=== PATIENT | male | born 1955 | race Two or more races ===

== ENCOUNTER → 2016-06-21 | Day surgery (SDC) | payer SELFPAY ==
[~2016-06-21] VITALS: Ht 172.7 cm; Wt 90.7 kg
[2016-06-21] VITALS (9 sets, daily range): BP systolic 127–154; BP diastolic 78–91
[~2016-06-21] MED LIST: ACTOS30 MG ORAL; ASPIRIN81 MG ORAL; BENAZEPRIL HCL40 MG ORAL; FISH OIL300 M1 PO; GLIMEPIRIDE4 MG ORAL; Glycopyrrolate 0.2mg/ml 1ml Vial ONE; JANUMET 50-1,01 EACH ORAL; LR 1000ml ONE; Lidocaine 1% MPF 10mg/ml 5ml ONE; PRAVASTATIN SOD20 M1 ORAL; Propofol 10mg/ml 20ml IV ONE; TAMSULOSIN HCL0.4 MG ORAL; VITAMIN D1000 UNI1 ORAL
--- NOTE | 2016-06-21 07:11 | Pre-Procedure Note/Attestation ---
Pre-Procedure Note/Attestation Complete Prior to Procedure Planned Procedure: not applicable Procedure Narrative: esophagogastroduodenoscopy colon Indications for Procedure Pre-Operative Diagnosis: GERD Polyp Attestation I attest that I discussed the nature of the procedure; its benefits; risks and complications; and alternatives (and the risks and benefits of such alternatives ), prior to the procedure, with the patient (or the patient's legal service representative). I attest that, if there was a reasonable possibility of needing a blood transfusion, the patient (or the patient's legal service representative) was given the [facility] standardized written summary, pursuant to the Tony Delevan Blood Safety Act ([place] Health and Safety Code # 1645, as amended). I attest that I re-evaluated the patient just prior to the surgery and that there has been no change in the patient's H&P, except as documented below: CLINT CONROY Jun 21, 2016 07:11
--- NOTE | 2016-06-21 07:11 | Short Stay Surgery H&P ---
History of Present Illness History of Present Illness Chief Complaint see attached H&P HPI Iram Caro is a 61 year old male who was admitted on for Colon Polyps,Gerd Patient History Allergies: Coded Allergies: CODEINE (Verified Allergy, Severe, Rash, 06/20/16) With high doses as per the patient PAST MEDICAL HISTORY: Past Surgeries: Social History: Medication History Scheduled Aspirin* (Aspirin*), 81 MG ORAL DAILY, (Reported) Benazepril Hcl* (Benazepril Hcl*), 40 MG ORAL DAILY, (Reported) Cholecalciferol (Vitamin D3)* (Vitamin D*), 2,000 UNITS ORAL DAILY, (Reported) Glimepiride* (Glimepiride*), 4 MG ORAL BEFORE BREAKFAST, (Reported) [place]-3 Fatty Acids (Fish Oil), 300 MG PO DAILY, (Reported) Pioglitazone Hcl* (Actos*), 30 MG ORAL DAILY, (Reported) Pravastatin Sod* (Pravastatin Sod*), 40 MG ORAL BEDTIME, (Reported) Sitagliptin Phos/Metformin Hcl (Janumet 50-1,000 Mg Tablet), 1 TAB ORAL TWICE A DAY, (Reported) Tamsulosin Hcl (Tamsulosin Hcl*), 0.4 MG ORAL BID, (Reported) Physical Exam Vital Signs Last Vital Signs Date Time Temp Pulse Resp B/P Pulse Ox O2 Delivery O2 Flow Rate FiO2 06/21/16 06:33 97.9 76 18 154/88 96 Room Air Plan Attestation Are the patient's medical conditions optimized for surgery? CLINT CONROY Jun 21, 2016 07:11
--- NOTE | 2016-06-21 07:41 | Anethesia Preoperative Eval ---
Anesthesia Pre-op PMH/ROS General Date of Evaluation: Jun 21, 2016 Time of Evaluation: 07:36 Anesthesiologist: rema ASA Score: ASA 2 Mallampati Score Class I : Soft palate, uvula, fauces, pillars visible Class II: Soft palate, uvula, fauces visible Class III: Soft palate, base of uvula visible Class IV: Only hard plate visible Mallampati Classification: Class II Surgeon: morales Diagnosis: gerd Surgical Procedure: EGD/Colonoscopy Anesthesia History: none Family History: no anesthesia problems Allergies: Coded Allergies: CODEINE (Verified Allergy, Severe, Rash, 06/20/16) With high doses as per the patient Medications: see eMAR Past Medical History Cardiovascular: Reports: HTN Pulmonary: Denies: COPD, JOSE, asthma, other Gastrointestinal/Genitourinary: Reports: GERD Neurologic/Psychiatric: Denies: CVA, TIA, dementia, depression/anxiety, other Endocrine: Reports: hypothyroidism HEENT: Denies: EKWOK (L), EKWOK (R), cataract (L), cataract (R), glaucoma, other Hematology/Immune: Denies: DVT, anemia, bleeding disorder, other Musculoskeletal/Integumentary: Denies: DDD, DJD, OA, RA, edema, other PSxH Narrative: EGD/Colon Anesthesia Pre-op Phys. Exam Physician Exam Last Vital Signs Date Time Temp Pulse Resp B/P Pulse Ox O2 Delivery O2 Flow Rate FiO2 06/21/16 06:33 97.9 76 18 154/88 96 Room Air Constitutional: NAD Neurologic: CN 2-12 intact Cardiovascular: RRR Respiratory: CTA Gastrointestinal: S/NT/ND Airway Exam Mallampati Classification 3 Mallampati Score: Class II MO: full ROM: full Dentures: no lower, no upper Anesthesia Pre-op A/P Risk Assessment & Plan Plan: Mac Status Change Before Surgery: No Pre-Antibiotics Drug: none DEJA ARRINGTON CRNA Jun 21, 2016 07:41
--- NOTE | 2016-06-21 08:06 | Brief Operative Note ---
Immediate Post Operative Note Operative Note Chief Complaint: JIM, Polyp Pre-op Diagnosis: GERD Polyp Procedure: EGD/bx, colon/bx/SN/Inj Post-op Diagnosis: Little, HH, GERD, Inlet, Tics, Sigmoidectomy, polyps Surgeon: rishabh Anesthesiologist: see attached Anesthesia: MAC, moderate sedation Specimen: yes Complications: none Condition: stable Estimated Blood Loss: none Drains: none Implant(s) used?: Yes CLINT CONROY Jun 21, 2016 08:06
--- NOTE | 2016-06-21 08:07 | Brief Operative Note ---
Immediate Post Operative Note Operative Note Chief Complaint: Little, polyp Pre-op Diagnosis: GERD Polyp Procedure: EGD/bx, colon/bx/SN/Inj Post-op Diagnosis: Little, HH, GERD, Inlet, Tics, Sigmoidectomy, polyps Surgeon: rishabh Anesthesiologist: see attached Anesthesia: MAC Specimen: yes Complications: none Condition: stable Estimated Blood Loss: none Drains: none Implant(s) used?: No CLINT CONROY Jun 21, 2016 08:07
--- NOTE | 2016-06-21 08:16 | Immediate Post-Op Evaluation ---
Immediate Post-Op Evalulation Immediate Post-Op Evalulation Procedure: EGD/Colonscopy Date of Evaluation: Jun 21, 2016 Time of Evaluation: 08:15 IV Fluids: 600 Blood Pressure Systolic: 127 Blood Pressure Diastolic: 79 Pulse Rate: 86 Respiratory Rate: 14 Temperature (Fahrenheit): 97.6 Nausea: No Vomiting: No Complications none Patient Status: awake, patent Hydration Status: adequate Drug: none TARRILLIONDEJA CRNA Jun 21, 2016 08:16
--- NOTE | 2016-06-21 08:58 | 48 Hour Post Anesthesia Eval ---
Post Anesthesia Evaluation Procedure: EGD/Colonscopy Date of Evaluation: Jun 21, 2016 Time of Evaluation: 08:57 Blood Pressure Systolic: 150 0: 74 O2 Sat by Pulse Oximetry: 99 Airway: patent Nausea: No Vomiting: No Hydration Status: adequate Mental Status/LOC: patient returned to baseline Post-Anesthesia Complications: none DEJA ARRINGTON CRNA Jun 21, 2016 08:58
--- NOTE | 2016-06-25 08:28 | Operative Note - Dictated ---
DATE OF OPERATION: 06/21/2016 GASTROLOGY PROCEDURE PROCEDURE: Upper gastrointestinal endoscopy with biopsy as well as colonoscopy with biopsy, snare polypectomy and tattoo injection. SURGEON: Ernie Tinajero M.D. ANESTHESIA: Please see the separate anesthesiologist notes for details. PRE-ENDOSCOPIC DIAGNOSES: 1. gastroesophageal reflux. 2. History of colonic polyps. POST-ENDOSCOPIC DIAGNOSES: 1. Antrum gastritis. 2. A 2 to 3 cm hiatal hernia. 3. Gastroesophageal reflux with erosions in the lower esophagus. 4. Esophagitis in the past. 5. Colonic diverticulosis. 6. Status post sigmoid resection anatomy as expected. 7. Transverse colon polyp in the proximal transverse colon, status post biopsy. 8. A flat 6 to 7 cm transverse colon polyp at the distal transverse colon, status post biopsy, snare polypectomy, and with nearby Viviane ink injection. 9. Sigmoid colon polyp, status post hot snare polypectomy. DESCRIPTION OF PROCEDURE: The procedure, its risks, indications, alternatives, and possible complications including, but not limited to, bleeding, infection, perforation, , and anesthesia complications were explained to the patient and informed consent was obtained. The diagnostic upper endoscope was introduced through the oropharynx and advanced to the duodenum. The endoscope was then gradually withdrawn and the mucosa examined carefully. The examination was notable for findings as listed above. Biopsies of the antrum was sent to pathology for review. The endoscope was removed. The rectal exam was done and a colonoscope was introduced through the rectum and advanced to the cecum without difficulty. The colonoscope was then gradually withdrawn and the mucosa examined carefully. Findings are as listed above. The distal transverse colon polyp was removed, Viviane ink was injected through the polyp appeared to be within a difficult to see. The Viviane ink was injected to jessie for future reference. Hot specimens were sent to pathology for review. Retroflex view of the rectum was unremarkable. The colonoscope was removed and the patient was sent to recovery in good condition. COMPLICATIONS: None. RECOMMENDATIONS: 1. Follow up all biopsy and pathology results. 2. Reflux precautions. 3. Discussed long-term reflux management with the patient and followup. 4. Repeat colonoscopy time interval based on pathology findings. Thank you for asking me to participate in the care of this patient. Ernie Tinajero M.D. DR: MARLENE JOB#: [id number] CC: Ernie Tinajero M.D.; Fax#: [phone]
== END | disposition home or self-care (01) ==
LOC: GAS 06:06
DX: Z86.010 Personal history of colon polyps (principal); D12.3 Benign neoplasm of transverse colon; D12.5 Benign neoplasm of sigmoid colon; K57.30 Diverticulosis of large intestine without perforation or abscess without bleeding; K21.9 Gastro-esophageal reflux disease without esophagitis; K29.50 Unspecified chronic gastritis without bleeding; K44.9 Diaphragmatic hernia without obstruction or gangrene; E11.9 Type 2 diabetes mellitus without complications; Z79.84 Long term (current) use of oral hypoglycemic drugs; N40.0 Benign prostatic hyperplasia without lower urinary tract symptoms; E78.00 Pure hypercholesterolemia, unspecified; E03.9 Hypothyroidism, unspecified; Z79.82 Long term (current) use of aspirin; Z88.5 Allergy status to narcotic agent; Z90.49 Acquired absence of other specified parts of digestive tract
CPT/HCPCS: 43239; 45380; 45381; 45385; 82962; J2704; J7120; 94003; 94150